=== PATIENT | male | born 1950 | race Caucasian/White ===

== ENCOUNTER 2019-11-24 17:49 | Emergency (ER) | payer MEDICARE, BC, SELFPAY ==
--- NOTE | ~2019-11-24 | XR_ITS ---
EXAMINATION: XR lumbar spine 2-3V DATE: 11/24/2019 18:31 INDICATION: Low back pain TECHNIQUE: Anteroposterior and lateral views of the lumbar spine, and cone-down lateral view of the l umbosacral junction were obtained. COMPARISON: 05/07/2013 FINDINGS: There is no fracture, dislocation, or subluxation. There is chronic moderate loss of interv ertebral disc space height at L5-S1. Mild loss of intervertebral disc space height is seen at L2-3 an d L3-4. The vertebral body heights are maintained. Small degenerative osteophytes project from the an terior endplates of multiple vertebral bodies. Calcified atherosclerosis is noted. The bowel gas ilan jairon is normal. IMPRESSION: 1. Mild lumbar spondylosis without acute findings. Reviewed, dictated and finalized at location A.
--- NOTE | 2019-11-24 18:04 | ED.GENADULT ---
HPI - General Adult General Chief complaint: Back Pain/Injury Stated complaint: back injury Time Seen by Provider: 11/24/19 18:11 Source: patient Mode of arrival: ambulatory Limitations: no limitations History of Present Illness HPI narrative: 69-year-old male patient presents to the [facility] with complaints of low back pain. Patient states that he slipped today and fell landing on a 2 x 4 on his back. Patient states that he is having trouble standing up straight but denies any numbness or tingling down the legs. Denies any loss of bowel or bladder control. Patient states he did take 2 Advil prior to coming in. Patient denies any per burning or blood in the urine. Patient denies hitting his head or loss of consciousness. Related Data Home Medications Medication Instructions Recorded Confirmed multivitamin 1 tablet PO DAILY 07/29/19 08/09/19 omeprazole 20 mg capsule,delayed 20 mg PO DAILY 07/29/19 08/09/19 release quinapril 20 1 tablet PO DAILY 07/29/19 08/09/19 mg-hydrochlorothiazide 12.5 mg tablet sildenafil 100 mg tablet 100 mg PO DAILY PRN 07/29/19 08/09/19 simvastatin 20 mg tablet 20 mg PO DAILY 07/29/19 08/09/19 finasteride mg 11/24/19 Allergies Allergy/AdvReac Type Severity Reaction Status Date / Time No Known Allergies Allergy Verified 08/02/19 10:10 Review of Systems Review of Systems: Narrative: CONSTITUTIONAL: Denies fever, chills, or sweats. EYES: Denies visual changes, redness, or discharge. ENT: Denies rhinorrhea, congestion, sore throat, or otalgia. CARDIOVASCULAR: Denies chest pain, palpitations, or edema. RESPIRATORY: Denies cough or dyspnea. GASTROINTESTINAL: Denies abdominal pain, nausea, vomiting, or diarrhea. GENITOURINARY: Denies dysuria or hematuria. SKIN: Denies rash or itching. MUSCULOSKELETAL: Positive low back pain, denies joint pain, or myalgia. NEUROLOGIC: Denies headache, numbness, or weakness. PSYCHIATRIC: Denies anxiety or depression. [facility] Past Medical History Medical History Influenza A Family History Family History Father Family history of cardiovascular disease Mother Family history of dementia Social History Social History Smoking status: Former smoker Second hand tobacco smoke exposure: No Alcohol intake: current Substance use: current Substance use type: marijuana Comments At the time of my signature I agree with nursing past medical history, surgical, social, and family history. There is no relevant family history pertinent to the presenting complaint. Exam Narrative: Exam Narrative: GENERAL: Well-appearing, well-nourished, and in no acute distress. HEAD: Normocephalic, atraumatic. EYES: PERRLA and EOMI. ENT: Nares clear, no rhinorrhea or epistaxis. Mucous membranes moist. NECK: Supple. No lymphadenopathy CHEST: Clear to auscultation. No respiratory distress. HEART: Regular rate and rhythm. No murmur heard. Normal peripheral pulses. ABDOMEN: Soft, nontender, nondistended, normal active bowel sounds. EXTREMITIES: Normal range of motion. No edema. BACK: Patient is able to ambulated but is using a cane for assistance. Pt is leaning over on the stretcher in obvouis distress. Patient does have an abrasion and muscle spasm noted to the left lumbar spine around the lateral side of the L1 and L2.. muscle tenderness to Palpation. No step-offs or deformity noted to the cervical, thoracic or lumbar spine to firm Palpation at the midline. No CVA tenderness to percussion. No saddle anesthesia. ROM: able to stand erect. Normal flexion, extension, Lateral bending and rotation. SKIN: Warm, dry, no rash. NEURO: No focal deficits. Alert and oriented x3. Course Reevaluation(s) Reevaluation #1: Reevaluated patient after x-ray had resulted. Discussed with him that the x-
[2019-11-24 18:09] VITALS: BP 188/102; PULSE 85; RESP 16; TEMP 36.1; O2SAT 99
[2019-11-24] MEDS: ACETAMINOPHEN 500 MG TABLET 1000 MG PO (18:30)
== END 2019-11-24 18:50 | disposition home or self-care (01) ==
PROVIDERS: Emergency Provider Nurse Practitioner Family; PCP Physician Assistant
DX: S30.0XXA Contusion of lower back and pelvis, initial encounter (principal); Z87.891 Personal history of nicotine dependence; E78.00 Pure hypercholesterolemia, unspecified; I10 Essential (primary) hypertension; K21.9 Gastro-esophageal reflux disease without esophagitis; M19.90 Unspecified osteoarthritis, unspecified site; W01.198A Fall on same level from slipping, tripping and stumbling with subsequent striking against other object, initial encounter
CPT/HCPCS: 72100; 99213; A9270; G0463

== ENCOUNTER 2020-04-21 10:26 | Emergency (ER) | payer MEDICARE, BC, SELFPAY ==
[2020-04-21 10:37] VITALS: BP 165/85; PULSE 88; RESP 16; TEMP 36.9; O2SAT 97
--- NOTE | 2020-04-21 11:09 | ED.WOUNDLAC ---
HPI - Wound/Laceration General Chief Complaint: Wound/Laceration Stated Complaint: cut right index finger Time Seen by Provider: 04/21/20 11:09 Source: patient and RN notes reviewed Mode of arrival: ambulatory Limitations: no limitations Related Data Home Medications Medication Instructions Recorded Confirmed multivitamin 1 tablet PO DAILY 07/29/19 04/21/20 finasteride 5 mg PO DAILY 11/24/19 04/21/20 albuterol sulfate 1 puff INHALATION Q4H PRN 04/21/20 04/21/20 tadalafil 20 mg PO DAILY PRN 04/21/20 04/21/20 Allergies Allergy/AdvReac Type Severity Reaction Status Date / Time No Known Allergies Allergy Verified 04/21/20 10:48 [facility], [facility] Past Medical History Medical History (Updated 04/21/20 @ 12:27 by Mell Camargo NP) Influenza A Family History Family History Father Family history of cardiovascular disease Mother Family history of dementia Social History Social History Smoking status: Former smoker Second hand tobacco smoke exposure: No Alcohol intake: current Substance use: current Substance use type: marijuana Course Vital Signs Vital signs: Vital Signs Temperature 36.9 C 04/21/20 10:37 Pulse Rate 88 04/21/20 10:37 Respiratory Rate 16 04/21/20 10:37 Blood Pressure 165/85 H 04/21/20 10:37 Pulse Oximetry 97 04/21/20 10:37 Temperature 36.9 C 04/21/20 10:37 Pulse Rate 88 04/21/20 10:37 Respiratory Rate 16 04/21/20 10:37 Blood Pressure 165/85 H 04/21/20 10:37 Pulse Oximetry 97 04/21/20 10:37 MDM - Wound/Laceration Differential Diagnosis Differential diagnosis: Likely laceration Medical Records Attestation: I reviewed the patient's medical records. Critical Care Time Critical Care Time Critical Care Time: No Discharge Plan Discharge Clinical Impression: Laceration of right index finger w/o foreign body w/o damage to nail Qualifiers: Encounter type: initial encounter Qualified Code(s): S61.210A - Laceration without foreign body of right index finger without damage to nail, initial encounter Patient Disposition: Home, Self-Care Condition: Stable Instructions: Laceration (ED) Additional Instructions: Cleanse wound twice daily then apply bacitracin ointment to wound twice daily Bandage of choice watch for any infection--redness, swelling, drainage Tylenol or ibuprofen discussed them and tell them follow up with PCP in 10 days for a wound check and removal of stitches recheck if develop fever, chills, increasing symptom Go to the ER if your symptoms become worse of if ANY new symptoms develop If your symptoms persist, change or worsen significantly before you can contact your personal physician then please, without delay, go to the emergency department for further evaluation. Follow-up with PCP in 7-10 days or sooner if needed Follow up with PCP soon in regards to your blood pressure which is elevated above threshold for referral. Blood pressure above 120/80 may indicate pre-hypertension. Prescriptions: New cephalexin [Keflex] 500 mg capsule 500 mg PO Q12H Qty: 20 RF: 0 No Action albuterol sulfate 90 mcg/actuation HFA aerosol inhaler 1 puff INHALATION Q4H PRN (Reason: Shortness Of Breath) RF: 0 tadalafil 20 mg tablet 20 mg PO DAILY PRN (Reason: Erectile Dysfunction) RF: 0 finasteride 5 mg tablet 5 mg PO DAILY RF: 0 multivitamin [Multiple Vitamins] Tablet 1 tablet PO DAILY RF: 0 quinapril-hydrochlorothiazide 20-12.5 mg tablet 1 tablet PO DAILY Qty: 90 RF: 2 simvastatin 20 mg tablet 20 mg PO DAILY Qty: 90 RF: 2 Follow-up/Referrals: Mehdi Brooks PA-C [Primary Care Provider] - Time of Disposition: 12:31
[2020-04-21] MEDS: TETANUS,DIPHTHERIA,AC PERTUSSIS ADULT (0.5 ML) BOOSTRIX IM (11:31)
--- NOTE | 2020-04-21 12:24 | ED.WOUNDLAC ---
HPI - Wound/Laceration General Chief Complaint: Wound/Laceration Stated Complaint: cut right index finger Time Seen by Provider: 04/21/20 11:09 Source: patient and RN notes reviewed Mode of arrival: ambulatory Limitations: no limitations History of Present Illness HPI narrative: 70-year-old male who [facility] with complaints of laceration to his right index finger which occurred this morning about 20 minutes prior to arrival on commercial lawn specialist handle which pinched finger causing laceration. Patient has 2cm laceration to the distal pizano aspect of his right index finger which is irregular in shape with bleeding presently under control. Patient states that his tetanus is not up to date. Onset (ago): minute(s) (20 minutes prior to arrival) Extremity Location: Right: hand (Right index finger distal palmar aspect) Place: home Patient tetanus UTD: No Context: accidental Associated symptoms: none Treatments prior to arrival: bandage Related Data Home Medications Medication Instructions Recorded Confirmed multivitamin 1 tablet PO DAILY 07/29/19 04/21/20 finasteride 5 mg PO DAILY 11/24/19 04/21/20 albuterol sulfate 1 puff INHALATION Q4H PRN 04/21/20 04/21/20 tadalafil 20 mg PO DAILY PRN 04/21/20 04/21/20 Allergies Allergy/AdvReac Type Severity Reaction Status Date / Time No Known Allergies Allergy Verified 04/21/20 10:48 Review of Systems Review of Systems: Narrative: CONSTITUTIONAL: Denies fever, chills, or sweats. EYES: Denies visual changes, redness, or discharge. ENT: Denies rhinorrhea, congestion, sore throat, or otalgia. CARDIOVASCULAR: Denies chest pain, palpitations, or edema. RESPIRATORY: Denies cough or dyspnea. GASTROINTESTINAL: Denies abdominal pain, nausea, vomiting, or diarrhea. GENITOURINARY: Denies dysuria or hematuria. SKIN: Denies rash or itching.Laceration of right distal pizano aspect of right index finger MUSCULOSKELETAL: Denies back pain, joint pain, or myalgia. NEUROLOGIC: Denies headache, numbness, or weakness. PSYCHIATRIC: Denies anxiety or depression, history of PTSD All systems reviewed & are unremarkable except as noted in HPI and below PMFSH Past Medical History Medical History (Updated 04/24/20 @ 10:17 by Mell Camargo NP) Elevated cholesterol Erectile dysfunction GERD (gastroesophageal reflux disease) Hypertension Influenza A Surgical History Surgical History (Updated 04/24/20 @ 10:02 by Mell Camargo NP) H/O inguinal hernia repair History of tonsillectomy Family History Family History Father Family history of cardiovascular disease Mother Family history of dementia Social History Social History Smoking status: Former smoker Second hand tobacco smoke exposure: No Alcohol intake: current Substance use: current Substance use type: marijuana Comments At time of signature, agree with nursing past medical, surgical, social and family history. There is no relevant family history pertinent to the presenting complaint Exam Narrative: Exam Narrative: GENERAL: Well-appearing, well-nourished, and in no acute distress. HEAD: Normocephalic, atraumatic. EYES: PERRLA and EOMI. ENT: Nares clear, no rhinorrhea or epistaxis. Mucous membranes moist. NECK: Supple.no lymphadenopathy CHEST: Clear to auscultation. No respiratory distress.SAO2 97% on room air. HEART: Regular rate and rhythm. No murmur heard. Normal peripheral pulses. ABDOMEN: Soft, nontender, nondistended, normal active bowel sounds. EXTREMITIES: Normal range of motion. No edema. Patient displays a 2cm laceration to the right index finger pizano aspect distally with no injury to nail noted, bleeding controlled. Patient has full mobility, sensation and circulation to his right index finger and hand with strong right radial pulse. SKIN: Warm, dry, no rash. NEURO: No focal
== END 2020-04-21 12:37 | disposition home or self-care (01) ==
PROVIDERS: Emergency Provider Registered Nurse; PCP Physician Assistant
DX: S61.210A Laceration without foreign body of right index finger without damage to nail, initial encounter (principal); W23.0XXA Caught, crushed, jammed, or pinched between moving objects, initial encounter; Z23 Encounter for immunization; Z87.891 Personal history of nicotine dependence; E78.00 Pure hypercholesterolemia, unspecified; K21.9 Gastro-esophageal reflux disease without esophagitis; I10 Essential (primary) hypertension
CPT/HCPCS: 12001; 90471; 90715; 99213; G0463

== ENCOUNTER 2021-09-04 15:06 | Emergency (ER) | payer MEDICARE, BC, SELFPAY ==
--- NOTE | ~2021-09-04 | XR_ITS ---
EXAMINATION: XR chest 1V portable DATE: 09/04/2021 15:41 INDICATION: Altered mental status. TECHNIQUE: A single frontal view of the chest was obtained. COMPARISON: Chest 2 views 09/03/2011, CT abdomen and pelvis 05/07/2013 FINDINGS: There are interstitial opacities in the mid and lower lung zones. No pleural effusion or pn eumothorax. The dose is normal. IMPRESSION: 1. Interstitial opacities in the mid and lower lung zones, consistent with mild pulmonary edema versu s mild atelectasis. Reviewed, dictated and finalized at location A. IMPRESSION: 1. Interstitial opacities in the mid and lower lung zones, consistent with mild pulmonary edema versus mild atelectasis.
--- NOTE | ~2021-09-04 | CT_ITS ---
EXAMINATION: CT brain wo con DATE: 09/04/2021 15:53 INDICATION: Altered mental status. TECHNIQUE: Computed tomography (CT) of the head was performed without intravenous contrast. The mA wa s adjusted according to patient size. Iterative reconstruction technique was employed. The dose-lengt h product was 605.33 mGy-cm. COMPARISON: None FINDINGS: In the left temporal lobe, there is low-attenuation involving gilmoer and white matter. Within this volume, there is acute intraparenchymal hemorrhage and a small volume of acute subarachnoid hem orrhage. There are scattered areas of low attenuation in the cerebral white matter, which is within n ormal limits for the patient's age. The ventricles are normal in size. The orbits are normal. The mas toid air cells are normal. There is mild mucosal thickening in the paranasal sinuses. IMPRESSION: 1. 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 I called this result to Dr. Comer. Reviewed, dictated and finalized at location A. IMPRESSION: 1. 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 I elvia led this result to Dr. Comer.
[2021-09-04 15:09] VITALS: BP 167/99; PULSE 103; RESP 14; TEMP 36.4; O2SAT 98
[2021-09-04 15:25] VITALS: BP 150/90; PULSE 92; RESP 16; O2SAT 97
--- NOTE | 2021-09-04 15:30 | ED.AMS ---
HPI - Altered Mental Status General Chief Complaint: Altered Mental Status Stated Complaint: can't think x a few days Time Seen by Provider: 09/04/21 15:27 Source: patient and family Mode of arrival: ambulatory Limitations: no limitations History of Present Illness HPI narrative: Patient is 71 years old white male brought to the emergency room by his because of headache, trouble reading and trouble to find certain words. Started 3 to 5 days ago. Patient denied any antiplatelet or anticoagulant medications. History of hypertension and hyperlipidemia. Related Data Home Medications Medication Instructions Recorded Confirmed multivitamin 1 tablet PO DAILY 07/29/19 08/06/21 finasteride 5 mg PO DAILY 11/24/19 08/06/21 tadalafil 20 mg tablet 5 mg PO DAILY tablet 08/06/21 08/06/21 Allergies Allergy/AdvReac Type Severity Reaction Status Date / Time No Known Allergies Allergy Verified 09/04/21 15:32 Review of Systems Review of Systems: CONSTITUTIONAL: Denies fever, chills, or sweats. EYES: Denies visual changes, redness, or discharge. ENT: Denies rhinorrhea, congestion, sore throat, or otalgia. CARDIOVASCULAR: Denies chest pain, palpitations, or edema. RESPIRATORY: Denies cough or dyspnea. GASTROINTESTINAL: Denies abdominal pain, nausea, vomiting, or diarrhea. GENITOURINARY: Denies dysuria or hematuria. SKIN: Denies rash or itching. MUSCULOSKELETAL: Denies back pain, joint pain, or myalgia. NEUROLOGIC: Denies headache, numbness, or weakness. PSYCHIATRIC: Denies anxiety or depression. [facility] Past Medical History Medical History Elevated cholesterol Erectile dysfunction GERD (gastroesophageal reflux disease) Hypertension Influenza A Surgical History Surgical History H/O inguinal hernia repair History of tonsillectomy Family History Family History Father Family history of cardiovascular disease Mother Family history of dementia Social History Social History Smoking packs per day: 1.5 Smoking cigarettes per day: 30.0 Years smoked: 35 Smoking pack-years: 52.50 Smoking status: Former smoker Second hand tobacco smoke exposure: No Alcohol intake: current Substance use: current Substance use type: marijuana Exam Narrative: General appearance: Well-developed, well-nourished Skin: Normal color Head: Normocephalic, nontraumatic Eyes: Clear conjunctiva ENT: Oropharynx normal, ears normal, nose normal Neck: Supple, nontender Chest and respiratory: Airway patent, no respiratory distress, no accessory muscle use Heart: Regular rate/rhythm Abdomen: Soft, nontender, no organomegaly, quiet bowel sounds Vascular: Normal peripheral pulses, normal capillary refill. Musculoskeletal: Normal range of motion, nontender back Neurologic: Alert and oriented ?3, [employer]IST is normal as tested, no gross motor deficit Course Course Emergency Course: Stable Reevaluation(s) Reevaluation #1: DR SMITH, neurologist at [facility] who accepted patient transfer Date: 09/04/21 Time: 16:29 Reevaluation #2: DR HATFIELD Date: 09/04/21 Time: 16:29 Vital Signs Vital signs: Vital Signs Temperature 36.4 C 09/04/21 15:09 Pulse Rate 103 H 09/04/21 15:09 Respiratory Rate 14 09/04/21 15:09 Blood Pressure 167/99 H 09/04/21 15:09 Pulse Oximetry 98 09/04/21 15:09 Temperature 36.4 C 09/04/21 15:09 Pulse Rate 87 09/04/21 16:21 Respiratory Rate 24 H 09/04/21 16:21 Blood Pressure 173/93
--- NOTE | 2021-09-04 15:33 | ECG_ITS ---
Measurements Intervals [place] Rate: 85 P: 27 GA: 153 QRS: -11 QRSD: 98 T: 15 QT: 356 QTc: 423 Interpretive Statements SINUS RHYTHM EARLY TRANSITION BORDERLINE ECG NO PREVIOUS ECG AVAILABLE FOR COMPARISON Electronically Signed On 09-04-2021 18:09:01 CDT by Giovanni Loene M.D.
[2021-09-04 15:44] LABS: Basophils Percent Auto 0.3 % (0.2-1.2); Eosinophils Absolute Auto 0.1 K/mm3 (0-0.3); Eosinophils Percent Auto 0.9 % (0-4.4); Hematocrit 50.6 % (42.0-52.0); Hemoglobin 17.3 g/dL (14.0-18.0); Immature Granulocyte Absolute 0.02 K/mm3 (0.00-0.031); Immature Granulocyte Percent A 0.2 % (0-0.5); Lymphocytes Absolute Auto 2.62 K/mm3 (0.9-3.2); Lymphocytes Percent Auto 27.6 % (18.3-44.2); Mean Corpuscular HGB Conc 34.2 g/dl (32-36); Mean Corpuscular Hemoglobin 31.3 pg (26-34); Mean Corpuscular Volume 91.5 fl (80-100); Monocytes Absolute Auto 0.7 K/mm3 (0.1-0.6); Monocytes Percent Auto 7.1 % (2.6-8.5); Neutrophils Absolute Auto 6.1 K/mm3 (1.3-6.7); Neutrophils Percent Auto 63.9 % (45.5-73.1); Platelet Count Result 292 k/mm3 (150-375); Red Blood Count 5.53 M/mm3 (4.6-6.20); Red Cell Distribution Width 13.2 % (11.5-14.5); White Blood Count 9.5 K/mm3 (4.5-10.0)
[2021-09-04] MEDS: SODIUM CHLORIDE 0.9% IV 1,000 ML 999 ML IV CONT (16:02)
[2021-09-04 16:07] LABS: INR 1.1; Partial Thromboplastin Time 35.8 SECONDS (22.3-36.8); Prothrombin Time 13.4 Seconds (11.1-14.7)
[2021-09-04 16:20] VITALS: BP 173/93; PULSE 90; RESP 18; O2SAT 96
[2021-09-04 16:21] VITALS: BP 173/93; PULSE 87; RESP 24; O2SAT 96
--- NOTE | 2021-09-04 16:23 | PC.NURSE ---
Dr. Comer aware of elevated BP at this time. no new orders received
[2021-09-04 17:43] LABS: Alanine Aminotransferase 14 U/L (4-50); Alkaline Phosphatase 80 U/L (38-126); Anion Gap 7 mmol/L (8-16); Aspartate Amino Transferase 22 U/L (17-59); Bilirubin,Total 0.9 mg/dL (0.2-1.3); Blood Urea Nitrogen 15 mg/dL (9-20); Calcium 8.7 mg/dL (8.4-10.2); Carbon Dioxide 21 mmol/L (22-30); Chloride 108 mmol/L (98-107); Creatine Kinase 85 U/L (55-170); Estimated Glomerular Filt Rate > 60; Glucose 100 mg/dL (65-110); Potassium 3.3 mmol/L (3.4-5.0); Sodium 136 mmol/L (137-145)
[2021-09-04 17:54] LABS: Troponin I < 0.012 ng/mL (0.000-0.034)
[2021-09-04 18:06] LABS: Appearance Urine Clear (Clear); Bilirubin Urine 1+ (Negative); Blood Urine 1+ (Negative); Glucose Urine UA Negative (Negative); Ketones Urine 4+ mg/dL (Negative); Leukocyte Esterase Ur Negative LEU/UL (Negative); Nitrate Urine Negative (Negative); Protein Urine Negative (Negative); Urobilinogen Urine 0.2 mg/dL (<2.0)
[2021-09-04 18:07] LABS: Add Urine Microscopic? YES; Color Urine Dark Yellow (Yellow)
[2021-09-04 18:10] LABS: Mucus Urine Rare /lpf; WBC Urine 0-3 /hpf
--- NOTE | 2021-09-04 19:47 | PC.NURSE ---
spoke with nanda at [facility] and advised of departure from our facility
== END 2021-09-04 19:48 | disposition short-term general hospital (02) ==
LOC: ANHED 16:25
PROVIDERS: Emergency Provider Emergency Medicine; PCP Physician Assistant
DX: I60.9 Nontraumatic subarachnoid hemorrhage, unspecified (principal); I61.9 Nontraumatic intracerebral hemorrhage, unspecified; I10 Essential (primary) hypertension; E78.5 Hyperlipidemia, unspecified; K21.9 Gastro-esophageal reflux disease without esophagitis; Z87.891 Personal history of nicotine dependence; R91.8 Other nonspecific abnormal finding of lung field
CPT/HCPCS: 36415; 70450; 71045; 80053; 81001; 82550; 84443; 84484; 85025; 85610; 85730; 93005; 96360; 99284; 99285; J7030

== ENCOUNTER 2023-02-24 00:10 | Day surgery (SDC) | payer MEDICARE, BC, SELFPAY ==
[2023-02-19 10:43] VITALS: BMI 25.1
[2023-02-24] MEDS: LACTATED RINGERS 1,000 ML 150 ML IV CONT (08:29)
[2023-02-24 08:30] VITALS: BP 144/87; PULSE 82; RESP 18; TEMP 36.2; O2SAT 99; BMI 24.9
--- NOTE | 2023-02-24 08:38 | PM.HPGS ---
History of Present Illness History of Present Illness Consent: Risks, benefits, and alternatives have been discussed and questions answered. Patient agrees to proceed with procedure. Chief complaint: positive cologuard Narrative: Elmo Floyd is a 72 year old male Presents for screening colonoscopy. Patient's current weight appetite and bowel movements are normal. Patient denies abdominal pain. He has had no bleeding. Family history noncontributory. Patient recently had a Cologuard test that was reported to be positive. Review of Systems Review of Systems: Review of systems is noncontributory. [facility] Past Medical History Medical History Adhesive capsulitis of left shoulder Elevated cholesterol Erectile dysfunction GERD (gastroesophageal reflux disease) Hypertension Influenza A Surgical History Surgical History H/O inguinal hernia repair History of tonsillectomy Family History Family History Father Family history of cardiovascular disease Mother Family history of dementia Social History Social History Smoking packs per day: 1.5 Smoking cigarettes per day: 30.0 Years smoked: 35 Smoking pack-years: 52.50 Smoking status: Current some day smoker Tobacco type: cigarettes Second hand tobacco smoke exposure: No Alcohol intake: former Substance use: current Substance use type: marijuana Lack of Transportation: No Lack of Food: Never True Current Housing: I Have Housing Concerned About Future Housing: No Difficulty Paying Gas/Electric Bills: No Difficulty Paying for Meds: No Currently Unemployed: No Education: High School Diploma/GED Difficulty w/ Childcare or Family Care: No Living arrangements: with family Occupation/Education: retired Spiritual care concerns: No Meds Home Medications and Allergies Home Medications Medication Instructions Recorded Confirmed Type multivitamin (Multiple Vitamins 1 tablet PO DAILY 07/29/19 02/24/23 History tablet) Eliquis 5 mg tablet (apixaban) 5 mg PO BID #180 tabs 10/05/21 02/24/23 Rx lisinopril 20 1 tablet PO DAILY #90 tabs 08/30/22 02/24/23 Rx mg-hydrochlorothiazide 12.5 mg tablet rosuvastatin 20 mg tablet 20 mg PO DAILY #90 tabs 10/09/22 02/24/23 Rx omeprazole 20 mg capsule,delayed 20 mg PO DAILY #90 caps 02/12/23 02/24/23 Rx release Allergies Allergy/AdvReac Type Severity Reaction Status Date / Time topiramate Allergy Severe Unknown Verified 02/24/23 08:17 Vital Signs Vital Signs - 24 hr 02/24/23 08:30 Temperature 97.1 F L Pulse Rate 82 Respiratory Rate 18 Blood Pressure 144/87 H Pulse Oximetry 99 Oxygen Delivery Room Air Exam Narrative: Physical exam reveals patient to be alert. Vital signs stable. HEENT exam is unremarkable. Patient is anicteric. Lungs are clear to auscultation and percussion. Heart is without murmur or extra sounds. Abdomen bowel sounds are present soft nontender with no organomegaly. Digital external rectal exam is normal. Assessment and Plan Assessment and plan (1) Positive colorectal cancer screening using Cologuard test: Code(s): R19.5 - Other fecal abnormalities Status: Acute Assessment and Plan: Patient presents today for screening colonoscopy because of a positive Cologuard test. Further recommendations may be given after endoscopy.
--- NOTE | 2023-02-24 09:13 | WPDANESEPPF ---
Anes - Initial Pre Proc Eval Procedure: Operation Date: 02/24/23 09:30 Proposed Procedures p Colonoscopy - Ricardo Natarajan MD Date/Time: 02/24/23 09:13 Surgeon: Ricardo Natarajan MD Pre Op Diagnosis: positive cologuard Patient Data Age: 72 Gender: M Height: 1.85 m Weight: 85.7 kg Last Vital Signs Temp 97.1 F L 02/24/23 08:30 Pulse 82 02/24/23 08:30 Resp 18 02/24/23 08:30 BP 144/87 H 02/24/23 08:30 Pulse Ox 99 02/24/23 08:30 O2 Del Method Room Air 02/24/23 08:30 Allergies Allergy/AdvReac Type Severity Reaction Status Date / Time topiramate Allergy Severe Unknown Verified 02/24/23 08:17 Home Medications Medication Instructions Recorded Confirmed Type multivitamin (Multiple Vitamins 1 tablet PO DAILY 07/29/19 02/24/23 History tablet) Eliquis 5 mg tablet (apixaban) 5 mg PO BID #180 tabs 10/05/21 02/24/23 Rx lisinopril 20 1 tablet PO DAILY #90 tabs 08/30/22 02/24/23 Rx mg-hydrochlorothiazide 12.5 mg tablet rosuvastatin 20 mg tablet 20 mg PO DAILY #90 tabs 10/09/22 02/24/23 Rx omeprazole 20 mg capsule,delayed 20 mg PO DAILY #90 caps 02/12/23 02/24/23 Rx release Patient hx anesthesia problems: none Family hx anesthesia problems: none Results Review: All pre-operative results and documents have been reviewed as part of the pre-operative evaluation. [facility] Past Medical History Medical History Adhesive capsulitis of left shoulder Elevated cholesterol Erectile dysfunction GERD (gastroesophageal reflux disease) Hypertension Influenza A Surgical History Surgical History H/O inguinal hernia repair History of tonsillectomy Family History Family History Father Family history of cardiovascular disease Mother Family history of dementia Social History Social History Smoking packs per day: 1.5 Smoking cigarettes per day: 30.0 Years smoked: 35 Smoking pack-years: 52.50 Smoking status: Current some day smoker Tobacco type: cigarettes Second hand tobacco smoke exposure: No Alcohol intake: former Substance use: current Substance use type: marijuana Lack of Transportation: No Lack of Food: Never True Current Housing: I Have Housing Concerned About Future Housing: No Difficulty Paying Gas/Electric Bills: No Difficulty Paying for Meds: No Currently Unemployed: No Education: High School Diploma/GED Difficulty w/ Childcare or Family Care: No Living arrangements: with family Occupation/Education: retired Spiritual care concerns: No Anes - Eval Final PreProcedure Day of Procedure 02/24/23 09:13 Patient weight: normal Heart: regular rate and rhythm Lungs: clear to auscultation Airway: Mallampati scale class II Neurological: alert and oriented Last oral intake: >/= 8 hours ASA classification: III Emergent: no Anesthetic plan: proceed Anesthesia type and monitoring: general GIVS and standard monitoring Results Review: All pre-operative results and documents have been reviewed as part of the pre-operative evaluation. Informed Consent: The patient's anesthetic plan and its attendant risks and benefits were discussed with the patient/family/POA. Questions were solicited and answers provided to the satisfaction of the patient/family/POA.
[2023-02-24] MEDS: SIMETHICONE ORAL SUSPENSION 20 MG/0.3 ML 30 ML BOTTLE 0.6 ML IRRIGATION (09:49)
[2023-02-24 10:04] VITALS: BP 86/54; PULSE 64; RESP 21; O2SAT 97
[2023-02-24 10:14] VITALS: BP 110/73; PULSE 68; RESP 20; O2SAT 100
[2023-02-24 10:24] VITALS: BP 149/90; PULSE 67; RESP 17; O2SAT 100
== END 2023-02-24 10:31 | disposition home or self-care (01) ==
PROVIDERS: PCP Physician Assistant; Visit Provider Internal Medicine Gastroenterology
PROC: 0DJD8ZZ Inspection of Lower Intestinal Tract, Via Natural or Artificial Opening Endoscopic (ICD-10-PCS; CPT 45378; principal; 2023-02-24 09:30)
DX: Z12.11 Encounter for screening for malignant neoplasm of colon (principal); R19.5 Other fecal abnormalities; D12.3 Benign neoplasm of transverse colon; K64.8 Other hemorrhoids; K57.30 Diverticulosis of large intestine without perforation or abscess without bleeding; I10 Essential (primary) hypertension; E78.00 Pure hypercholesterolemia, unspecified; K21.9 Gastro-esophageal reflux disease without esophagitis; Z79.01 Long term (current) use of anticoagulants; F17.210 Nicotine dependence, cigarettes, uncomplicated; F12.90 Cannabis use, unspecified, uncomplicated
CPT/HCPCS: 45385; 88305; J2704; J7120

== ENCOUNTER 2023-05-12 11:52 | Outpatient (CLI) | payer MEDICARE, BC, SELFPAY ==
--- NOTE | ~2023-05-12 | XR_ITS ---
Clinical Indication: Cough PA and lateral views of the chest: Comparison: 09/04/2021 Findings: Linear bibasilar scarring or atelectasis noted. The lungs are otherwise clear, without evid ence of focal consolidation or pleural effusion. Cardiomediastinal silhouette is within normal limit s. Bones and soft tissues are unremarkable. Impression: Linear right basilar scarring or atelectasis, otherwise clear lungs. Reviewed, dictated and finalized at location [facility] [employer] Impression: Linear right basilar scarring or atelectasis, otherwise clear lungs.
== END 2023-05-12 11:53 | disposition home or self-care (01) ==
PROVIDERS: PCP Physician Assistant; Visit Provider Physician Assistant
DX: R91.8 Other nonspecific abnormal finding of lung field (principal); R05.8 Other specified cough
CPT/HCPCS: 71046